=== PATIENT | male | born 1935 | race Asian ===

== ENCOUNTER 2021-11-28 22:39 | Emergency (ER) | payer OTHER ==
[~2021-11-28] VITALS: Ht 167.6 cm; Wt 74.4 kg
[~2021-11-28 22:39] MED LIST: NAPR220T57 PO; TYL3B PO
[2021-11-29] MEDS ORDERED: MORPHINE 4 MG SYG IVP ONE
[2021-11-29] MEDS ORDERED: ONDANSETRON 4MG INJ IVP ONE
[2021-11-29] MEDS ORDERED: CEPH500B PO (00:30)
[2021-11-29] MEDS ORDERED: CLOT15CR5 TP (00:30)
[2021-11-29 00:43] VITALS: BP 138/75
== END 2021-11-29 00:47 | disposition home or self-care (01) ==
LOC: EDH 22:39
DX: N47.2 Paraphimosis (principal); N48.1 Balanitis; E11.9 Type 2 diabetes mellitus without complications
CPT/HCPCS: J2270; J2405